=== PATIENT | female | born 1955 | race Hispanic/Latino ===

== ENCOUNTER 2022-12-28 02:46 | Observation (INO) | payer MEDICARE ==
[~2022-12-28] VITALS: Ht 154.9 cm; Wt 69.9 kg
[2022-12-28] VITALS (8 sets, daily range): BP systolic 121–151; BP diastolic 55–75; PULSE 66–88; RESP 16–20; TEMP 97.7–98.7; O2SAT 98–100
[2022-12-28] MEDS ORDERED: ASPIRIN 81 MG CHEW TAB PO STA (03:41)
[2022-12-28] MEDS ORDERED: ASPIRIN 81 MG CHEW TAB ONE (03:48)
[2022-12-28] MEDS ORDERED: SODIUM CHLORIDE FLUSH 10 ML SYR INJ PRN (04:45)
[2022-12-28] MEDS ORDERED: NITROGLYCERIN 0.4 MG SUBL SL PRN (04:45)
[2022-12-28] MEDS ORDERED: ONDANSETRON HCL INJ 2MG/ML 2ML 2 MG/ML VIAL IV PRN (04:45)
[2022-12-28] MEDS ORDERED: ASPIRIN 81 MG CHEW TAB PO ONE (04:45)
[2022-12-28] MEDS ORDERED: METFORMIN HCL1000 MG PO (05:16)
[2022-12-28] MEDS ORDERED: ROSUVASTATIN CA20 MG PO (05:16)
[2022-12-28] MEDS ORDERED: CLOPIDOGREL75 MG PO (05:16)
[2022-12-28] MEDS ORDERED: DEXTROSE 50% SYRINGE 50 ML IV PRN (05:45)
[2022-12-28] MEDS ORDERED: ACETAMINOPHEN 325 MG TAB PO PRN (05:45)
[2022-12-28] MEDS ORDERED: JARDIANCE25 MG PO (07:04)
[2022-12-28] MEDS ORDERED: METOPROLOL SUCC25 MG PO (07:51)
[2022-12-28] MEDS: INSULIN LISPRO 100 UNIT/1 ML 3ML VIAL SQ SCH ×4 (09:34→20:51)
[2022-12-28] MEDS ORDERED: ALBUTEROL/IPRATROPIUM 3 ML NEB NEB PRN (12:00)
[2022-12-28] MEDS ORDERED: SIMETHICONE 80 MG CHEW PO PRN (12:00)
[2022-12-28] MEDS: ASPIRIN 325 MG TAB PO SCH (12:00)
[2022-12-28] MEDS ORDERED: MELATONIN 3 MG TAB PO PRN (12:00)
[2022-12-28] MEDS ORDERED: DOCUSATE SODIUM 100 MG CAP PO PRN (12:00)
[2022-12-28 12:01] LABS: BASOPHILS # (AUTO) 0.1 (0.0-0.1); BASOPHILS % 0.7 % (0.0-1.0); EOSINOPHILS # (AUTO) 0.2 (0.0-0.4); EOSINOPHILS % 2.2 % (0.0-6.0); HEMATOCRIT 37.8 % (34.2-44.1); HEMOGLOBIN 12.3 g/dL (12.0-16.0); LYMPHOCYTES # (AUTO) 2.5 (1.0-3.2); LYMPHOCYTES % 35.2 % (18.0-39.1); MEAN CORPUSCULAR HEMOGLOBIN 28.4 pg (28-32); MEAN CORPUSCULAR HGB CONC 32.5 g/dL (31-35); MEAN CORPUSCULAR VOLUME 87.3 fL (81-99); MONOCYTES # (AUTO) 0.6 (0.2-0.8); MONOCYTES % 8.1 % (4.4-11.3); NEUTROPHILS # (AUTO) 3.8 (2.1-6.9); NEUTROPHILS % 53.4 % (38.7-80.0); PLATELET COUNT 307 x10e3/uL (140-360); RED BLOOD COUNT 4.33 x10e6/uL (3.6-5.1); RED CELL DISTRIBUTION WIDTH 13.8 % (11.7-14.4); WHITE BLOOD COUNT 7.13 x10e3/uL (4.8-10.8)
[2022-12-28 12:55] LABS: ANION GAP 14.1 mmol/L (8-16); CALCIUM 9.2 mg/dL (8.4-10.2); CREATININE, SERUM 0.73 mg/dL (0.57-1.11); POTASSIUM 4.1 mmol/L (3.5-5.1)
[2022-12-28 13:18] LABS: CHOL/HDL RATIO 3.6 (3.0-3.6)
[2022-12-28] MEDS ORDERED: ENOXAPARIN SOD INJ 40 MG/0.4 ML SYR SC SCH (17:00)
[2022-12-28] MEDS: FAMOTIDINE 20 MG TAB PO SCH (17:54)
[2022-12-28] MEDS ORDERED: GARLIPURE600 MG PO (18:07)
[2022-12-28] MEDS ORDERED: ASPIRIN81 MG PO (18:07)
[2022-12-28] MEDS ORDERED: GLUCOTRUST PO (18:07)
[2022-12-28] MEDS ORDERED: NAPROXEN250 MG PO (18:07)
[2022-12-28] MEDS ORDERED: [UNRECOGNIZED DRUG - OTHER] PO (18:07)
[2022-12-28] MEDS ORDERED: CRESTOR 10MG PO SCH (21:00)
[2022-12-28] MEDS ORDERED: METOPROLOL SUCCINATE 25 MG TAB XL PO SCH (21:00)
[2022-12-29] VITALS (7 sets, daily range): BP systolic 104–156; BP diastolic 38–70; PULSE 64–88; RESP 18–20; TEMP 98.5–98.8; O2SAT 97–100
[2022-12-29 06:00] LABS: CHOL/HDL RATIO 4.3 (3.0-3.6)
[2022-12-29] MEDS: INSULIN LISPRO 100 UNIT/1 ML 3ML VIAL SQ SCH ×2 (07:30→12:16)
[2022-12-29] MEDS: FAMOTIDINE 20 MG TAB PO SCH (07:30)
[2022-12-29] MEDS ORDERED: ONDANSETRON HCL 4 MG ORAL DISINTEGRATING TAB PO PRN (08:30)
[2022-12-29] MEDS: ASPIRIN 325 MG TAB PO SCH (09:00)
[2022-12-29] MEDS ORDERED: CLOPIDOGREL BISULFATE 75 MG TAB PO SCH (09:00)
[2022-12-29] MEDS ORDERED: REGADENOSON 0.4 MG/5 ML SYR IV ONE (10:34)
[2022-12-29] MEDS ORDERED: FAMOTIDINE20 MG PO (13:41)
[2022-12-29] MEDS ORDERED: METOPROLOL SUCCINATE 50 MG TAB XL PO ONE (13:45)
[2022-12-30] MEDS ORDERED: METOPROLOL SUCCINATE 50 MG TAB XL PO SCH (09:00)
== END 2022-12-29 14:30 | disposition home or self-care (01) ==
LOC: FSED 02:50 → INTOOBSV 04:40 → ERHOLD 04:40 → MED/SURG 06:45
PROVIDERS: ADMIT Internal Medicine; ATTEND Internal Medicine
DX: R07.89 Other chest pain (principal); I10 Essential (primary) hypertension; E78.5 Hyperlipidemia, unspecified; E11.65 Type 2 diabetes mellitus with hyperglycemia; Z79.02 Long term (current) use of antithrombotics/antiplatelets; Z79.82 Long term (current) use of aspirin; I07.1 Rheumatic tricuspid insufficiency; R00.2 Palpitations; Z88.6 Allergy status to analgesic agent; Z88.1 Allergy status to other antibiotic agents; Z88.2 Allergy status to sulfonamides; Z91.048 Other nonmedicinal substance allergy status; Z79.84 Long term (current) use of oral hypoglycemic drugs; Z86.73 Personal history of transient ischemic attack (TIA), and cerebral infarction without residual deficits
CPT/HCPCS: 36415; 71046; 78452; 80048; 80053; 80061 ×2; 81003; 82550 ×2; 82553; 82948 ×2; 83036; 84484 ×2; 85025; 93005; 93017; 93306; 94799 ×2; 99284; A9502; G0378 ×2; J1650; J2785